=== PATIENT | male | born 1955 | race Caucasian/White ===

== ENCOUNTER 2023-04-02 01:20 | Emergency (ER) | payer OTHER, MEDICAID ==
[~2023-04-02] VITALS: Ht 172.7 cm; Wt 68.0 kg
[2023-04-02 01:30] VITALS: BP 106/70; PULSE 110; RESP 20; TEMP 98.2
[2023-04-02 01:49] VITALS: O2SAT 98
[2023-04-02] MEDS ORDERED: NACL 0.9% 1,000 ML IV ONE (02:00)
[2023-04-02] MEDS ORDERED: LORazepam 2 MG/ML VIAL IM ONE (03:10)
== END 2023-04-02 06:39 | disposition home or self-care (01) ==
LOC: MED 01:20
DX: F15.10 Other stimulant abuse, uncomplicated (principal)
CPT/HCPCS: 96360; 96372; 99283; J2060; J7030